=== PATIENT | female | born 1985 | race Caucasian/White ===

== ENCOUNTER 2018-07-14 14:47 | Emergency (ER) | payer OTHER ==
[2018-07-14 14:55] VITALS: BP 123/59; PULSE 85; TEMP 98.3; BMI 23.2
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
[2018-07-14] MEDS ORDERED: KETOROLAC TROMETHAMINE 60 MG/2 ML VIAL IM ONE (16:27)
[2018-07-14] MEDS ORDERED: KETOROLAC TROMETHAMINE 60 MG/2 ML VIAL ONE (16:34)
[2018-07-14] MEDS ORDERED: IBUPROFEN 600 MG TABLET (FP) PO ONE (16:39)
== END 2018-07-14 17:13 | disposition home or self-care (01) ==
LOC: JERFT 14:47
PROC: 3E0233Z Introduction of Anti-inflammatory into Muscle, Percutaneous Approach (ICD-10-PCS; principal; 2018-07-14)
DX: M62.830 Muscle spasm of back (principal); M62.838 Other muscle spasm; V43.52XA Car driver injured in collision with other type car in traffic accident, initial encounter; Y92.414 Local residential or business street as the place of occurrence of the external cause; Y93.89 Activity, other specified; Y99.8 Other external cause status
CPT/HCPCS: 72050-TC-FY; 72100-TC-FY; 84703; 99281-25